=== PATIENT | male | born 1985 | race Caucasian/White ===

== ENCOUNTER 2022-02-13 13:51 | Outpatient (CLI) | payer BC, SELFPAY ==
[2022-02-13 22:01] LABS: Barbiturate Screen Urine Negative (Negative); Benzodiazepines Screen Urine Negative (Negative); Cocaine Screen Urine Negative (Negative); Methadone Screen Urine Negative (Negative); Methamphetamines Screen Urine Negative (Negative); Opiate Screen Urine Negative (Negative); Oxycodone Screen Urine Negative (Negative); Phencyclidine Screen Urine Negative (Negative); Tricyclic Antidepressant Urine Negative (Negative)
[2022-02-13 22:07] LABS: Amphetamine Screen Urine POSITIVE (Negative); Cannabinoid Screen Urine POSITIVE (Negative)
== END 2022-02-13 13:52 | disposition home or self-care (01) ==
LOC: LKVREF 13:52
PROVIDERS: PCP Physician Assistant Medical; Visit Provider Physician Assistant Medical
DX: F90.9 Attention-deficit hyperactivity disorder, unspecified type (principal)
CPT/HCPCS: 80306

== ENCOUNTER 2023-07-02 08:25 | Outpatient (CLI) | payer OTHER, SELFPAY | END 2023-07-02 08:26 | disposition home or self-care (01) | PROVIDERS: PCP Physician Assistant Medical; Visit Provider Physician Assistant Medical | DX: F90.9 Attention-deficit hyperactivity disorder, unspecified type (principal); R94.6 Abnormal results of thyroid function studies | CPT/HCPCS: 80053; 80306 ==

== ENCOUNTER 2024-06-13 14:07 | Outpatient (CLI) | payer OTHER, SELFPAY | END 2024-06-13 14:08 | disposition home or self-care (01) | LOC: LKVREF 14:08 | PROVIDERS: PCP Physician Assistant Medical; Visit Provider Physician Assistant Medical | DX: F90.9 Attention-deficit hyperactivity disorder, unspecified type (principal) | CPT/HCPCS: 80306 ==